=== PATIENT | female | born 1985 | race Caucasian/White ===

== ENCOUNTER 2017-02-04 22:05 | Emergency (ER) | payer SELFPAY ==
[~2017-02-04] VITALS: Ht 162.6 cm; Wt 53.5 kg
[2017-02-04 22:05] VITALS: BP_SYST 140
== END 2017-02-04 22:53 | disposition home or self-care (01) ==
LOC: SED 22:05
DX: H10.9 Unspecified conjunctivitis (principal); R03.0 Elevated blood-pressure reading, without diagnosis of hypertension
CPT/HCPCS: 99283